=== PATIENT | female | born 2005 | race Caucasian/White ===

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

== ENCOUNTER → 2024-10-07 | Outpatient (CLI) | payer OTHER | LOC: M CLY 13:19 | PROVIDERS: ATTEND Nurse Practitioner Family | DX: S49.91XA Unspecified injury of right shoulder and upper arm, initial encounter (principal); Y93.9 Activity, unspecified; Y92.9 Unspecified place or not applicable ==

== ENCOUNTER 2025-01-20 12:25 | Day surgery (SDC) | payer OTHER ==
[~2025-01-20] VITALS: Ht 165.1 cm; Wt 85.9 kg
[~2025-01-20 12:25] MED LIST: RA A PO
[2025-01-20] MEDS: LR 1,000 ML IV SCH ×2 (13:20→18:49)
[2025-01-20] MEDS ORDERED: LIDOCAINE 2% 100 MG/5 ML SDV (FOR ANES.) As Ordered ONE (14:30)
[2025-01-20] MEDS ORDERED: ROCURONIUM BROMIDE 50MG/5ML VIAL As Ordered ONE (14:30)
[2025-01-20] MEDS ORDERED: MIDAZOLAM INJ 2 MG/2 ML VIAL As Ordered ONE (14:30)
[2025-01-20] MEDS ORDERED: INDOCYANINE GREEN 25 MG VIAL As Ordered ONE (14:31)
[2025-01-20] MEDS: INDOCYANINE GREEN 25 MG VIAL IV ONE (16:53)
[2025-01-20] MEDS: ceFAZolin SOD 2 GM IV ONCE IV ONE (17:20)
[2025-01-20] MEDS: HEPARIN SOD 5000 UNITS/ML 1 ML VIAL/SYRINGE SQ ONE (17:20)
[2025-01-20] MEDS ORDERED: dexAMETHasone 4 MG/ML 1 ML VIAL As Ordered ONE (17:26)
[2025-01-20] MEDS ORDERED: ONDANSETRON 4MG 2ML VIAL As Ordered ONE (17:26)
[2025-01-20] MEDS ORDERED: KETOROLAC 30 MG/ML 1 ML VIAL As Ordered ONE (17:26)
[2025-01-20] MEDS ORDERED: ACETAMINOPHEN 1000MG/100ML IV BAG As Ordered ONE (17:27)
[2025-01-20] MEDS ORDERED: SUGAMMADEX SODIUM 200 MG/2 ML VIAL As Ordered ONE (17:43)
[2025-01-20] MEDS: HYDROMORPHONE HCL 0.5 MG/0.5 ML SYRINGE IV PRN (18:49)
[2025-01-20] MEDS: ONDANSETRON 4MG 2ML VIAL IV PRN (18:54)
[2025-01-20] MEDS: PROMETHAZINE 25MG/ML 1ML VIAL IV ONE (20:16)
[2025-01-20 21:59] VITALS: BP 117/67; TEMP 96.9; O2SAT 96
== END 2025-01-20 22:00 | disposition home or self-care (01) ==
LOC: M SDC 12:25
PROVIDERS: ATTEND Surgery
DX: K80.10 Calculus of gallbladder with chronic cholecystitis without obstruction (principal); K21.9 Gastro-esophageal reflux disease without esophagitis; Z79.899 Other long term (current) drug therapy
CPT/HCPCS: 47562; 81025; 88304; J0131; J0665; J0690; J1100; J1171; J1885; J2250; J2405; J2550; J2765; J3010; Q9968; S2900

== ENCOUNTER → 2025-03-25 | Outpatient (CLI) | payer OTHER ==
[2025-03-25 14:22] LABS: BASO # 0.1 10^3/uL (0.0-0.2); BASO % 0.7 % (0.0-1.0); EOS # 0.1 10^3/uL (0.0-0.5); EOS % 0.6 % (0.0-3.0); LYMPH # 3.7 10^3/uL (1.5-5.0); LYMPH % 40.8 % (24.0-44.0); MONO # 0.5 10^3/uL (0.0-0.8); MONO % 5.4 % (2.0-8.0); NEUTROPHILS # 4.7 10^3/uL (1.5-8.5); NEUTROPHILS % 52.4 % (36.0-66.0); PLATELET COUNT, AUTOMATED 351 10^3/uL (150-450)
[2025-03-25 14:45] LABS: ALT/SGPT 27 U/L (7.0-40); AST/SGOT 20 U/L (<34); CALCIUM LEVEL 9.5 MG/DL (8.5-10.1); CARBON DIOXIDE LEVEL 26 MMOL/L (20-31); CHLORIDE LEVEL 107 MMOL/L (98-107); CREATININE FOR GFR 0.62 MG/DL (0.55-1.30); GLOMERULAR FILTRATION RATE > 90.0 (>60); POTASSIUM SERUM 4.2 MMOL/L (3.5-5.1); SODIUM LEVEL 139 MMOL/L (136-145)
== END ==
LOC: M LAB 13:33
PROVIDERS: ATTEND Surgery
DX: R10.10 Upper abdominal pain, unspecified (principal)

== ENCOUNTER → 2025-04-14 | Outpatient (CLI) | payer OTHER | LOC: M RAD 13:03 | PROVIDERS: ATTEND Surgery | DX: R10.10 Upper abdominal pain, unspecified (principal); Z48.815 Encounter for surgical aftercare following surgery on the digestive system; Z90.49 Acquired absence of other specified parts of digestive tract | CPT/HCPCS: 78226; A9537 ==

== ENCOUNTER → 2025-04-28 | Outpatient (CLI) | payer OTHER | LOC: M CLY 09:10 | PROVIDERS: ATTEND Nurse Practitioner Family | DX: M54.9 Dorsalgia, unspecified (principal) ==

== ENCOUNTER → 2025-04-28 | Outpatient (CLI) | payer OTHER | LOC: M CLY 14:19 | PROVIDERS: ATTEND Nurse Practitioner Family | DX: M41.85 Other forms of scoliosis, thoracolumbar region (principal) ==